=== PATIENT | male | born 1945 | race Caucasian/White ===

== ENCOUNTER 2016-12-26 13:38 | Emergency (ER) | payer MEDICARE ==
[2016-12-26 17:34] LABS: HEMOGLOBIN 14.6 gm/dl (14.0-17.5); RED BLOOD COUNT 4.63 M/UL (4.20-5.50); WHITE BLOOD COUNT 7.1 K/UL (4.5-11.0)
== END 2016-12-26 20:30 | disposition home or self-care (01) ==
LOC: ER1 13:38
PROVIDERS: Nurse Practitioner Family
DX: S22.32XA Fracture of one rib, left side, initial encounter for closed fracture (principal); N28.9 Disorder of kidney and ureter, unspecified; I10 Essential (primary) hypertension; E11.9 Type 2 diabetes mellitus without complications; E78.5 Hyperlipidemia, unspecified; F17.210 Nicotine dependence, cigarettes, uncomplicated; W01.198A Fall on same level from slipping, tripping and stumbling with subsequent striking against other object, initial encounter; Y92.002 Bathroom of unspecified non-institutional (private) residence as the place of occurrence of the external cause; Z91.041 Radiographic dye allergy status
CPT/HCPCS: 36415; 71020; 71100; 71250; 72100; 80053; 81001; 82550; 82553; 83690; 83874; 84484; 85025; 87086; 93005; 99285

== ENCOUNTER → 2021-07-31 | Outpatient (CLI) | payer MEDICARE ==
[~2021-07-31] MED LIST: ALLOPURINOL300 MG PO; ASPIR-LOW81 MG PO; BENAZEPRIL HCL40 MG PO; CETIRIZINE HCL10 MG PO; FENOFIBRIC ACI135 MG PO; HUMALOG100 UNIT/1 SQ; LANTUS100 UNIT/1 SQ; NORCO 5-325 TA1 EACH PO; OMEPRAZOLE40 MG PO; PAROXETINE HCL40 MG PO; ZETIA 10 MG TAB10 MG PO
== END ==
LOC: EDBD 09:00 → CT 09:00
DX: C67.9 Malignant neoplasm of bladder, unspecified (principal); L27.0 Generalized skin eruption due to drugs and medicaments taken internally; T45.1X5A Adverse effect of antineoplastic and immunosuppressive drugs, initial encounter; N18.9 Chronic kidney disease, unspecified; E07.89 Other specified disorders of thyroid; N40.0 Benign prostatic hyperplasia without lower urinary tract symptoms
CPT/HCPCS: 36415; 71250; 82565

== ENCOUNTER → 2022-05-18 | Outpatient (CLI) | payer MEDICARE | LOC: MRI 13:00 | DX: C61 Malignant neoplasm of prostate (principal); C79.11 Secondary malignant neoplasm of bladder; C79.19 Secondary malignant neoplasm of other urinary organs | CPT/HCPCS: 36415; 72195; 82565; 84520 ==